=== PATIENT | female | born 1965 | race Caucasian/White ===

== ENCOUNTER 2017-06-17 09:31 | Emergency (ER) | payer MEDICARE, BC ==
[~2017-06-17] VITALS: Ht 157.5 cm; Wt 68.0 kg
[~2017-06-17 09:31] MED LIST: LISI40TA PO; LYRI150C PO
[2017-06-17 09:37] VITALS: BP 183/109; PULSE 61; RESP 18; TEMP 98.7; O2SAT 100
[2017-06-17] MEDS ORDERED: ASPIRIN 325 MG TAB PO ONE (11:45)
[2017-06-17] MEDS ORDERED: SODIUM CHLORIDE 0.9% FLUSH 10 ML FLUSH IVF PRN (11:45)
--- NOTE | 2017-06-17 12:03 | PD ---
HPI Chief Complaint: Chest Pain Time Seen by Provider: 11:40 Travel History International Travel<30 days: No Contact w/Intl Traveler<30days: No Traveled to known affect area: No History of Present Illness HPI 52-year-old female presents with central chest pain that started Tuesday. She states it goes down her left arm. She states that it is intermittent in nature. She denies any other associated complaints except back pain after she had an accident a couple weeks ago. She states that the chest pain has just started this Tuesday. She denies recurrent history of this. She denies taking an aspirin. She denies following with a prior health information specialist or having routine cardiac workup. Quality is pressure. Severity is currently resolved. She states that episodes are intermittent in nature. [facility] Past Medical History Hypertension: Yes Past Surgical History Surgical History: No Previous Surgery Social History Tobacco Use: No Allergies-Medications (Allergen,Severity, Reaction): Coded Allergies: aspirin (Verified Allergy, Intermediate, 06/17/17) acetaminophen (Verified Allergy, Mild, itch, 06/17/17) hydrocodone (Verified Allergy, Mild, itch, 06/17/17) Reported Meds & Prescriptions Reported Meds & Active Scripts Active Reported Lyrica (Pregabalin) 150 Mg Cap 150 Mg PO BID Lisinopril 40 Mg Tab 40 Mg PO DAILY Review of Systems Except as stated in HPI: all other systems reviewed are Neg Physical Exam Narrative GENERAL: 52 y/o female in no apparent distress SKIN: Focused skin assessment warm/dry. HEAD: Atraumatic. Normocephalic. EYES: Pupils equal and round. No scleral icterus. No injection or drainage. ENT: No nasal bleeding or discharge. Mucous membranes pink and moist. NECK: Trachea midline. CARDIOVASCULAR: Regular rate and rhythm. RESPIRATORY: No accessory muscle use. Clear to auscultation. Breath sounds equal bilaterally. GASTROINTESTINAL: Abdomen soft, non-tender, nondistended. MUSCULOSKELETAL: No obvious deformities. No clubbing. No cyanosis. NEUROLOGICAL: Awake and alert. No obvious cranial nerve deficits. Motor grossly within normal limits. Normal speech. Data Data Last Documented VS Vital Signs Date Time Temp Pulse Resp B/P (MAP) Pulse Ox O2 Delivery O2 Flow Rate FiO2 06/17/17 12:57 56 18 100 06/17/17 09:37 98.7 183/109 (133) Orders Orders Electrocardiogram (06/17/17 09:34) Complete Blood Count With Diff (06/17/17 09:34) Basic Metabolic Panel (Bmp) (06/17/17 09:34) Ckmb (Isoenzyme) Profile (06/17/17 09:34) Troponin I (06/17/17 09:34) Magnesium (Mg) (06/17/17 11:40) Prothrombin Time / Inr (Pt) (06/17/17 11:40) Act Partial Throm Time (Ptt) (06/17/17 11:40) Ecg Monitoring (06/17/17 11:40) Bilateral Bp Monitoring (06/17/17 11:40) Iv Access Insert/Monitor (06/17/17 11:40) Oximetry (06/17/17 11:40) Aspirin (Aspirin) (06/17/17 11:45) Sodium Chloride 0.9% Flush (Ns Flush) (06/17/17 11:45) Chest, Pa & Lat (06/17/17 11:40) Labs Laboratory Tests Test 06/17/17 13:00 White Blood Count 6.9 TH/MM3 Red Blood Count 4.39 MIL/MM3 Hemoglobin 11.9 GM/DL Hematocrit 36.1 % Mean Corpuscular Volume 82.2 FL Mean Corpuscular Hemoglobin 27.0 PG Mean Corpuscular Hemoglobin Concent 32.8 % Red Cell Distribution Width 14.4 % Platelet Count 206 TH/MM3 Mean Platelet Volume 10.2 FL Neutrophils (%) (Auto) 48.8 % Lymphocytes (%) (Auto) 41.9 % Monocytes (%) (Auto) 6.1 % Eosinophils (%) (Auto) 2.1 % Basophils (%) (Auto) 1.1 % Neutrophils # (Auto) 3.4 TH/MM3 Lymphocytes # (Auto) 2.9 TH/MM3 Monocytes # (Auto) 0.4 TH/MM3 Eosinophils # (Auto) 0.1 TH/MM3 Basophils # (Auto) 0.1 TH/MM3 CBC Comment DIFF FINAL Differential Comment Prothrombin Time 10.1 SEC Prothromb Time International Ratio 1.0 RATIO Activated Partial Thromboplast Time 22.0 SEC Blood Urea Nitrogen 14 MG/DL Creatinine 0.82 MG/DL Random Glucose 72 MG/DL Calcium Level 8.9 MG/DL Sodium Level 144 MEQ/L Potassium Level 4.0 MEQ/L Chloride Level 108 MEQ/L Carbon Dioxide Level 31.0 MEQ/L Anion Gap 5 MEQ/L Estimat Glomerular Filtration Rate 73 ML/MIN Magnesium Level 2.4 MG/DL Total Creatine Kinase 47 U/L Troponin I LESS THAN 0.02 NG/ML MDM Medical Decision Making Medical Screen Exam Complete: Yes Emergency Medical Condition: Yes Medical Record Reviewed: Yes (pmh confirmed) Interpretation(s) EKG shows NSR, no ST elevation or depression, and no arrhythmias. No significant T-wave inversions. cxr no acute CBC & BMP Diagram 06/17/17 13:00 Calcium Level 8.9 Last 24 hours Impressions Chest X-Ray 06/17/17 1140 Signed Impressions: Service Date/Time: Saturday, June 17, 2017 11:54 - CONCLUSION: No acute cardiopulmonary abnormality is identified. Simba Burgess MD Differential Diagnosis Musculoskeletal, gastritis, atypical cardiac Narrative Course Will check blood work, chest x-ray and reevaluate. aspirin held as patient told staff she was allergic to aspirin While I was with a critical patient patient elected to leave without me talking with her further with her IV in place. She was just witnessed walking out by registration and could not be stopped. Nursing staff will call police as she still has IV in place and left AMA Diagnosis Primary Impression: Chest pain Qualified Codes: R07.9 - Chest pain, unspecified Disposition: 07 AGAINST MEDICAL ADVICE Condition: Stable Kim Leone MD Jun 17, 2017 12:03
--- NOTE | 2017-06-17 12:13 | RADRPT ---
EXAM DATE/TIME: 06/17/2017 11:54 [facility] COMPARISON: No previous studies available for comparison. INDICATIONS : Chest pains x1 week upper left under clavicle, with shortness of breath, MEDICAL HISTORY : Hypertension. SURGICAL HISTORY : None. ENCOUNTER: Initial ACUITY: 1 week PAIN SCORE: 3/10 LOCATION: Left chest FINDINGS: Portable AP view of the chest demonstrates a normal-sized cardiac silhouette. The lungs demonstrate n o definite effusion, consolidation, or pneumothorax. The bones and soft tissues demonstrate no acute finding. EKG lines overlie the patient. CONCLUSION: No acute cardiopulmonary abnormality is identified. Simba Burgess MD on June 17, 2017 at 12:11 Board Certified Radiologist. This report was verified electronically.
[2017-06-17 12:55] VITALS: PULSE 70; RESP 18; O2SAT 99
[2017-06-17 13:23] LABS: AUTOMATED NEUTROPHIL # 3.4 TH/MM3 (1.8-7.7); BASOPHIL # 0.1 TH/MM3 (0-0.2); BASOPHIL % 1.1 % (0.0-2.0); EOSINOPHIL # 0.1 TH/MM3 (0-0.4); EOSINOPHIL % 2.1 % (0.0-4.0); HEMATOCRIT 36.1 % (35.0-46.0); HEMOGLOBIN 11.9 GM/DL (11.6-15.3); LYMPH % 41.9 % (9.0-44.0); LYMPHOCYTE # 2.9 TH/MM3 (1.0-4.8); MEAN CELL VOLUME 82.2 FL (80.0-100.0); MEAN CORPUSCULAR HGB CONC 32.8 % (32.0-36.0); MEAN PLATELET VOLUME 10.2 FL (7.0-11.0); MONO % 6.1 % (0.0-8.0); MONOCYTE # 0.4 TH/MM3 (0-0.9); NEUT % 48.8 % (16.0-70.0); PLATELET COUNT 206 TH/MM3 (150-450); RED BLOOD COUNT 4.39 MIL/MM3 (4.00-5.30); RED CELL DISTRIBUTION WIDTH 14.4 % (11.6-17.2); WHITE BLOOD COUNT 6.9 TH/MM3 (4.0-11.0)
[2017-06-17 13:33] LABS: PROTHROMBIN TIME - PATIENT 10.1 SEC (9.8-11.6)
[2017-06-17 13:43] LABS: BLOOD UREA NITROGEN 14 MG/DL (7-18); CALCIUM 8.9 MG/DL (8.5-10.1); CHLORIDE 108 MEQ/L (98-107); CREATININE 0.82 MG/DL (0.50-1.00); GLOMERULAR FILTRATION RATE 73 ML/MIN (>89); GLUCOSE,RANDOM 72 MG/DL (74-106); SODIUM (NA) 144 MEQ/L (136-145)
[2017-06-17 13:47] LABS: TROPONIN I LESS THAN 0.02 NG/ML (0.02-0.05)
--- NOTE | 2017-06-18 19:15 | EKG ---
Date Performed: 06/17/2017 Time Performed: 10:04:09 PTAGE: 52 years EKG: SINUS BRADYCARDIA BORDERLINE ECG NO PREVIOUS TRACING DOCTOR: Tee Langford Interpretating Date/Time 06/18/2017 19:13:25
== END 2017-06-17 14:18 | disposition left against medical advice (07) ==
LOC: NEPC 09:31
DX: R07.9 Chest pain, unspecified (principal); R94.31 Abnormal electrocardiogram [ECG] [EKG]; I10 Essential (primary) hypertension; Z53.20 Procedure and treatment not carried out because of patient's decision for unspecified reasons
CPT/HCPCS: 71046; 80048; 82550; 83735; 84484; 85025; 85610; 85730; 93005; 99285